=== PATIENT | male | born 1965 | race Caucasian/White ===

== ENCOUNTER → 2016-05-28 | Outpatient (CLI) | payer BC ==
[~2016-05-28] VITALS: Ht 182.9 cm; Wt 112.5 kg
[~2016-05-28] MED LIST: REGADENOSON 0.4 MG/5 ML DISP.SYRIN. IV ONE
--- NOTE | 2016-05-28 10:30 | CARD ---
APPROVED REPORT EXAM: Two-dimensional and M-mode echocardiogram with Doppler and color Doppler. Other Information Quality : Average Rhythm : NSR INDICATION Chest Pain 2D DIMENSIONS RVDd3.0 (2.9-3.5cm)Left Atrium(2D)2.6 (1.6-4.0cm) IVSd1.1 (0.7-1.1cm)Aortic Root(2D)2.9 (2.0-3.7cm) LVDd3.9 (3.9-5.9cm)LVOT Diameter2.2 (1.8-2.4cm) PWd1.2 (0.7-1.1cm)LVDs2.2 (2.5-4.0cm) FS (%) 38.9 %SV48.0 ml LVEF(%)70.7 (>50%) Aortic Valve AoV Peak Dave.118.8cm/sAoV VTI18.6cm AO Peak GR.5.6mmHgLVOT Peak Dave.101.9cm/s LVOT VTI 17.98cmAO Mean GR.3mmHg SCOTT (VMAX)3.84ww9MNO (VTI)3.62cm2 Mitral Valve MV E Pgznsdvz25.9cm/sMV DECEL GMUY054rd MV A Ygtdizhe76.0cm/sMV E Mean Gr.2mmHg MV WZY85awO/A Ratio0.9 MV A Zasjscth904ueOIL (PHT)3.24cm2 TDI E/Lateral E'7.1E/Medial E'9.1 Pulmonary Valve PV Peak Stpiibmq524.1cm/sPV Peak Grad.6mmHg RVOT VTI15.5cm Tricuspid Valve TR P. Gzeklexf991ef/sRAP TTOYBYAV9deWy TR Peak Gr.29ufWuLOZA11mkTy LEFT VENTRICLE The left ventricle is normal size. There is normal left ventricular wall thickness. Left ventricle sy stolic function is normal. The Ejection Fraction is 65-70%. There is normal LV segmental wall motion. The left ventricular diastolic function and filling is normal for age. RIGHT VENTRICLE The right ventricle is normal size. The right ventricular systolic function is normal. ATRIA The left atrium size is normal. The right atrium size is normal. The interatrial septum is intact wit h no evidence for an atrial septal defect or patent foramen ovale as noted on 2-D or Doppler imaging. AORTIC VALVE The aortic valve is normal in structure and function. The aortic valve is trileaflet. Doppler and Col or Flow revealed no significant aortic regurgitation. There is no significant aortic valvular stenosi s. MITRAL VALVE The mitral valve is normal in structure and function. There is no mitral valve stenosis. Doppler and Color Flow revealed no mitral valve regurgitation noted. TRICUSPID VALVE The tricuspid valve is normal in structure and function. Doppler and Color Flow revealed trace tricus pid regurgitation. The PA pressure was estimated at 17 mmHg. There is no tricuspid valve stenosis. PULMONIC VALVE The pulmonic valve is not well visualized. Doppler and Color Flow revealed no pulmonic valvular regur gitation. There is no pulmonic valvular stenosis. GREAT VESSELS The aortic root is normal in size. Normal pulmonary venous flow (Doppler). The IVC is normal in size and collapses >50% with inspiration. PERICARDIAL EFFUSION There is no evidence of significant pericardial effusion. Critical Notification Critical Value: No <Conclusion> Left ventricle systolic function is normal. The Ejection Fraction is 65-70%. There is normal LV segmental wall motion. No significant valvular disease.
--- NOTE | 2016-05-28 11:26 | RAD ---
APPROVED REPORT Test Type: Pharmacological Stress Nurse/Tech: Filomena Hebert Test Indications: Chest Pain Cardiac History: see ehr Medications: see ehr Medical History: see ehr Resting ECG: SR Resting Heart Rate: 85 bpm Resting Blood Pressure: 160/99mmHg Pretest Chest Pain: None Nurse/Tech Notes Lungs CTA, S1, S2 Consent: The procedure was explained to the patient in lay terms. Informed consent was witnessed. Tani eout was entered into [employer]. History and Stress Test performed by Lakisha GravesNMaurisio Pharm. Details Pharmacologic stress testing was performed using 0.4mg per 5ml of regadenoson given intravenously ove r 7-10 seconds. POST EXERCISE Reason for Termination: Infusion complete Max HR: 102 bpm Max Blood Pressure: 162/97mmHg Blood Pressure response to exercise: Normal blood pressure response during stress. Chest Pain: No. Arrhythmia: No. ST Change: No. INTERPRETATION Stress EKG Conclusion: No acute changes were noted. Imaging Protocol IMAGE PROTOCOL: Rest Tc-99m/stress Tc-99m 1 day Rest: Stress: Viability: Radiopharm.Tc99m TfppewhzxXc96u Sestamibi Dose12.6mCi 37mCi Duration 15min. 10min. Img Date 05/28/2016 05/28/2016 Inj-Img Xapq82vwl. 75min. Rest Admin Site:IV - Right AntecubitalAdministrator:JOSÉ Lopez Stress Admin Site: IV - Right AntecubitalAdministrator: MAT Snow, ARRT (R)(N) STRESS DATA End Diast. Vol.106.0mlAv. Heart Rate92.0bpm End Syst. Vol.33.0mlCO Index BSA0.0L/min Myocardial Oywl594.0gEject. Mjwiyllb14.0% Stress Rates Pk. Fill Rate3.45EDV/secLVtime Pk. Fill 185.45msec Pk. Empty Rate4.88ESV/secLVtime Pk. Mhyps538.14msec 05/08 Pk. Fill1.82EDV/sec Stress Scores Regional WT1.00Summed WT7.00 Regional WM0.00Summed WM0.00 The rest and stress images show normal perfusion, normal contraction and thickening. LV Perfusion *There is a basal to mid inferior wall defect suggestive of diaphragmatic attenuation artifact. LV Perf. Quant 17 Seg. SSS0.00 17 Seg. SRS0.00 17 Seg. SDS0.00 Stress Defect Extent (% LAD)0.00Rest Defect Extent (% LAD)0.00Rev. Defect Extent (% LAD)0.00 Stress Defect Extent (% LCX) 0.00Rest Defect Extent (% LCX)0.00Rev. Defect Extent (% LCX)0.00 Stress Defect Extent (% RCA)0.00Rest Defect Extent (% RCA)0.00Rev. Defect Extent (% RCA)0.00 Stress Defect Extent (% SAMEER)0.00Rest Defect Extent (% SAMEER)0.00Rev. Defect Extent (% SAMEER)0.00 Other Information Quality:Average Risk Assessment: Low Risk Conclusion 1. No evidence of stress induced EKG changes. 2. Normal myocardial perfusion at stress/rest. 3. Low risk study. Preserved EF at > 65%
== END | disposition home or self-care (01) ==
LOC: NM 07:05
PROVIDERS: ATTEND Internal Medicine Cardiovascular Disease
DX: I07.1 Rheumatic tricuspid insufficiency (principal)
CPT/HCPCS: 78452; 93017; 93306; 96374; 96376; A9500; J2785

== ENCOUNTER → 2021-01-06 | Outpatient (CLI) | payer OTHER ==
--- NOTE | 2021-01-06 15:40 | RAD ---
MR#: [id number] Date of Study: 01/06/2021 Ordering Physician: SE HALL, Referring Physician: DYLAN ARIAS Tech: JOSÉ Lopez APPROVED REPORT Test Type: Pharmacological Stress Nurse/Tech: Ender Mccormack RN Test Indications: chest pain Cardiac History: HTN, smoker Medications: See Electronic Medical Record Medical History: See Electronic Medical Record Resting ECG: SR Resting Heart Rate: 69 bpm Resting Blood Pressure: 134/86mmHg Pretest Chest Pain: None Nurse/Tech Notes Lungs CTA, S1S2 Consent: The procedure was explained to the patient in lay terms. Informed consent was witnessed. Tani eout was entered into [employer]. History and Stress Test performed by MAT Snow, ANGE (R) (N) Pharm. Details Pharmacologic stress testing was performed using 0.4mg per 5ml of regadenoson given intravenously ove r 7-10 seconds. Stress Symptoms No chest pain or symptoms. POST EXERCISE Reason for Termination: Infusion complete Target HR: 99 Max Blood Pressure: 148/69mmHg Blood Pressure response to exercise: Normal blood pressure response during stress. Heart Rate response to exercise: normal response Chest Pain: No. Arrhythmia: No. ST Change: No. INTERPRETATION Stress EKG Conclusion: Baseline EKG showed sinus rhythm. No ischemic changes at peak stress. No arr hythmias. Imaging Protocol IMAGE PROTOCOL: Rest Tc-99m/stress Tc-99m 1 day Rest: Stress: Viability: Radiopharm.Tc99m IsboqehdxAe12o Sestamibi Uzad93wPs 32mCi Duration 15min. 13min. Img Date 01/06/2021 01/06/2021 Inj-Img [id number]. 60min. Rest Admin Site:IV - Right AntecubitalAdministrator:MAT Snow, ARRT (R)(N) Stress Admin Site: IV - Right AntecubitalAdministrator: MAT Snow, JODEET (R)(N) STRESS DATA End Diast. Vol.81.0mlLVEDV index BSA35.0ml End Syst. Vol.24.0mlLVESV index BSA10.0ml Myocardial Bqbx261.0gEject. Gzfmzyov63.0% Stress Scores Regional WT0.00Summed WT5.00 Regional WM0.00Summed WM2.00 Study quality was good. Left Ventricular size was Normal at Rest and Stress. Lung uptake was . Left Ventricular ejection fraction is 73%. The rest and stress images show normal perfusion, normal contraction and thickening. LV Perf. Quant 17 Seg. SSS2.00 17 Seg. SRS0.00 17 Seg. SDS2.00 Stress Defect Extent (% LAD)0.00Rest Defect Extent (% LAD)0.00Rev. Defect Extent (% LAD)0.00 Stress Defect Extent (% LCX) 0.00Rest Defect Extent (% LCX)0.00Rev. Defect Extent (% LCX)0.00 Stress Defect Extent (% RCA)13.30Rest Defect Extent (% RCA)0.00Rev. Defect Extent (% RCA)1.10 Stress Defect Extent (% SAMEER)2.60Rest Defect Extent (% SAMEER)0.00Rev. Defect Extent (% SAMEER)0.20 Conclusion 1. Regadenoson cardioisotope stress test did not show any evidence of ischemia or infarct. 2. Normal left ventricular systolic function with ejection fraction calculated at 73%. 3. Low risk for cardiac events. Signed by : Mateo Dominguez, Electronically Approved : 01/06/2021 15:39:40
== END ==
LOC: NM 07:38
PROVIDERS: ATTEND Internal Medicine Cardiovascular Disease
DX: R07.89 Other chest pain (principal)
CPT/HCPCS: 78452; 93017; A9500; J2785